=== PATIENT | male | born 1965 | race Caucasian/White ===

== ENCOUNTER 2017-10-06 19:35 | Inpatient (IN) | payer MEDICARE, MEDICAID ==
[~2017-10-06] VITALS: Ht 175.3 cm; Wt 93.9 kg
[2017-10-06 20:41] LABS: BASOPHILS % 1.4 % (0.0-2.0); EOSINOPHILS % 2.4 % (0.0-5.0); HEMATOCRIT. 29.5 % (42.0-52.0); LYMPHOCYTES % 20.8 % (20.0-50.0); MEAN CORPUSCULAR HEMOGLOBIN 28.6 pg (28.0-32.0); MEAN CORPUSCULAR VOLUME 93.7 fL (80.0-94.0); MEAN PLATELET VOLUME 7.8 fl (7.4-10.4); MONOCYTES % 7.9 % (2.0-8.0); NEUTROPHILS % 67.5 % (40.0-76.0); PLATELET 329 x1000/uL (130-400); RED BLOOD CELL COUNT 3.15 mill/uL (4.7-6.1); RED CELL DISTRIBUTION WIDTH 17.8 % (11.6-14.6)
[2017-10-06 20:43] LABS: CHLORIDE 105 mEq/L (98-107)
[2017-10-06 20:46] LABS: INR 1.1; PARTIAL THROMBOPLASTIN TIME 26.4 sec (23.4-31.0); PROTHROMBIN TIME 11.5 sec (9.4-11.6)
[2017-10-06 20:52] LABS: CARBON DIOXIDE 27 mEq/L (21-32)
[2017-10-07] VITALS (12 sets, daily range): BP systolic 130–147; BP diastolic 47–64
[2017-10-07] MEDS ORDERED: LINA5TAB PO (02:47)
[2017-10-07] MEDS ORDERED: FERR325T23 PO (02:47)
[2017-10-07] MEDS ORDERED: FOLI0.8T23 PO (02:47)
[2017-10-07] MEDS ORDERED: MAGN400T26 PO (02:47)
[2017-10-07] MEDS ORDERED: CALC0.253 PO (02:47)
[2017-10-07] MEDS ORDERED: FURO80TA3 PO (02:47)
[2017-10-07] MEDS ORDERED: MINO2.5T19 PO (02:47)
[2017-10-07] MEDS ORDERED: PRED5TAB PO (02:47)
[2017-10-07] MEDS ORDERED: AMIL5TAB8 PO (02:47)
[2017-10-07] MEDS ORDERED: SIMV40TA5 PO (02:47)
[2017-10-07] MEDS ORDERED: PROG1 PO (02:47)
[2017-10-07] MEDS ORDERED: GLIM2TAB2 PO (02:47)
[2017-10-07] MEDS ORDERED: DOXA8TAB2 PO (02:47)
[2017-10-07] MEDS ORDERED: MYCO250C PO (02:47)
[2017-10-07] MEDS ORDERED: DOXA8TAB81 PO (02:47)
[2017-10-07] MEDS ORDERED: ESCI10TA54 PO (02:47)
[2017-10-07] MEDS ORDERED: DEXTROSE 50% WATER 50ML SYRINGE IV PRN (06:30)
[2017-10-07] MEDS ORDERED: BLOOD SUGAR DIAGNOSTIC STRIP TEST SCH (07:40)
[2017-10-07] MEDS ORDERED: FERROUS SULFATE 325MG TABLET PO SCH (08:10)
[2017-10-07] MEDS ORDERED: INSULIN LISPRO 100 UNITS/ML SUBCUT SCH (08:10)
[2017-10-07] MEDS ORDERED: CEFAZOLIN 1000MG PREMIX 50 ML IV ONE ×2 (08:30→08:47)
[2017-10-07] MEDS ORDERED: LIDOCAINE HCL 1% 20ML VIAL (Pyxis) INJ ONE (08:38)
[2017-10-07] MEDS ORDERED: SODIUM BICARBONATE 4% (2.4MEQ) 5ML VIAL IV ONE (08:38)
[2017-10-07] MEDS ORDERED: FENTANYL CITRATE/PF 50MCG/ML 2ML VIAL ONE (08:48)
[2017-10-07] MEDS ORDERED: FENTANYL CITRATE/PF 50MCG/ML 2ML VIAL IV ONE (08:50)
[2017-10-07] MEDS ORDERED: FOLIC ACID/VITAMIN B COMP W-C TABLET PO SCH (09:00)
[2017-10-07] MEDS ORDERED: TACROLIMUS 1MG CAPSULE PO SCH (09:00)
[2017-10-07] MEDS ORDERED: MEDICATION NOT ON FORMULARY EA (Escitalopram Oxalate 10 MG) PO SCH (09:00)
[2017-10-07] MEDS ORDERED: CITALOPRAM HYDROBROMIDE 20MG TABLET PO SCH (09:00)
[2017-10-07] MEDS ORDERED: DOXAZOSIN MESYLATE 8 MG PO SCH (09:00)
[2017-10-07] MEDS ORDERED: FUROSEMIDE 80MG TABLET PO SCH (09:00)
[2017-10-07] MEDS ORDERED: MINOXIDIL 2.5MG TABLET PO SCH (09:00)
[2017-10-07] MEDS ORDERED: CALCITRIOL 0.25MCG CAPSULE PO SCH (09:00)
[2017-10-07] MEDS ORDERED: MYCOPHENOLATE MOFETIL 250MG CAPSULE PO SCH (09:00)
[2017-10-07] MEDS ORDERED: MAGNESIUM OXIDE 400MG TABLET PO SCH (09:00)
[2017-10-07] MEDS ORDERED: PREDNISONE 5MG TABLET PO SCH (09:00)
[2017-10-07] MEDS ORDERED: AMILORIDE HCL 5 MG TABLET PO SCH (09:00)
[2017-10-07] MEDS ORDERED: DOXAZOSIN MESYLATE 4MG TABLET PO SCH (09:00)
[2017-10-07] MEDS ORDERED: HYDROCODONE/ACETAMINOPHEN 5/325MG TABLET PO PRN (12:00)
[2017-10-07] MEDS ORDERED: ATORVASTATIN CALCIUM 20MG TABLET PO SCH (21:00)
[2017-10-07] MEDS ORDERED: MEDICATION NOT ON FORMULARY EA (Simvastatin 40 MG) PO SCH (21:00)
== END 2017-10-07 14:00 | disposition home or self-care (01) | DRG 314 ==
LOC: ER 19:38 → 7WST 21:25 → EDBEDREQTM 21:29 → EDBEDREQ 21:29 → ENRESERV 21:39
PROVIDERS: ADMIT Internal Medicine; ATTEND Internal Medicine
PROC: 0JH63XZ Insertion of Tunneled Vascular Access Device into Chest Subcutaneous Tissue and Fascia, Percutaneous Approach (ICD-10-PCS; principal; 2017-10-07)
PROC: B5181ZA Fluoroscopy of Superior Vena Cava using Low Osmolar Contrast, Guidance (ICD-10-PCS; 2017-10-07)
PROC: 02HV33Z Insertion of Infusion Device into Superior Vena Cava, Percutaneous Approach (ICD-10-PCS; 2017-10-07)
PROC: B548ZZA Ultrasonography of Superior Vena Cava, Guidance (ICD-10-PCS; 2017-10-07)
DX: T82.42XA Displacement of vascular dialysis catheter, initial encounter (principal); N18.6 End stage renal disease; I12.0 Hypertensive chronic kidney disease with stage 5 chronic kidney disease or end stage renal disease; E11.22 Type 2 diabetes mellitus with diabetic chronic kidney disease; Z94.0 Kidney transplant status; E66.9 Obesity, unspecified; D63.8 Anemia in other chronic diseases classified elsewhere; K43.9 Ventral hernia without obstruction or gangrene; E78.5 Hyperlipidemia, unspecified; Y84.1 Kidney dialysis as the cause of abnormal reaction of the patient, or of later complication, without mention of misadventure at the time of the procedure; Y92.89 Other specified places as the place of occurrence of the external cause; Z99.2 Dependence on renal dialysis; Z68.30 Body mass index [BMI] 30.0-30.9, adult; Z90.49 Acquired absence of other specified parts of digestive tract
CPT/HCPCS: 36415; 36558; 71045; 76937; 77001; 80053; 82962; 85025; 85610; 85730; 86850; 86900; 93005; 99285; C1750; C1769; C1887; J0690; J1642; J1815; J3010; J3490; J7507; J7512; J7517